=== PATIENT | male | born 1995 | race Caucasian/White ===

== ENCOUNTER 2017-06-14 02:25 | Emergency (ER) | payer MEDICAID, OTHER ==
[~2017-06-14] VITALS: Ht 165.1 cm; Wt 54.4 kg
[2017-06-14 02:30] VITALS: BP 141/77
--- NOTE | 2017-06-14 02:34 | NUR ---
TO LOBBY AMB A/W FOR BED, GWYN NOTED
[2017-06-14] MEDS ORDERED: ALUMINUM HYD/MAG/SIMETHICONE 30 ML UDC PO ONE (03:00)
[2017-06-14] MEDS ORDERED: LIDOCAINE VISCOUS 2% 20 ML UDC PO ONE (03:00)
[2017-06-14] MEDS ORDERED: DICYCLOMINE HCL LIQUID 10 MG/5 ML UDC PO ONE (03:00)
--- NOTE | 2017-06-14 03:00 | NUR ---
22 Y/O M W/C/O EPIGASTRIC PAIN X 2100 LAST NIGHT. PT DENIES ANY VOMITING BUT STATES FEELS SLIGTLY NAUSEATED. NO OTHER S/S OF DISTRESS NOTED. ER MD MADE AWARE.
[2017-06-14 03:49] VITALS: BP 123/84
--- NOTE | 2017-06-14 03:49 | NUR ---
Patient discharged with v/s stable. Written and verbal after care instructions givenand explained. Patient alert, oriented and verbalized understanding of instructions. Ambulatory with steady gait. All questions addressed prior to discharge. ID band removed. Patient advised to follow up with PMD. Rx of OMEPRAZOLE, AND MAALOX given. Patient educated on indication of medication including possible reaction and side effects. Opportunity to ask questions provided and answered.
== END 2017-06-14 03:49 | disposition home or self-care (01) ==
LOC: MED 02:25
DX: K29.70 Gastritis, unspecified, without bleeding (principal); R03.0 Elevated blood-pressure reading, without diagnosis of hypertension
CPT/HCPCS: 99283

== ENCOUNTER 2021-08-16 18:56 | Emergency (ER) | payer MEDICAID, OTHER ==
[~2021-08-16] VITALS: Ht 165.1 cm; Wt 56.7 kg
[2021-08-16 19:15] VITALS: BP 128/84
--- NOTE | 2021-08-16 20:10 | NUR ---
PT AMBULATED TO BED 08.
[2021-08-16] MEDS ORDERED: BENZOCAINE 20% 57 GM CAN MC ONE (21:20)
--- NOTE | 2021-08-16 21:24 | NUR ---
26 YO/M BIB SELF W C/O ABSCESS TO UPPER PALATE X1 WEEK W 10/10 SHARP CONSTANT PAIN RADIATING UP FACE, +SLIGHT NAUSEA FROM THE PAIN. PT REPORTS SEEING DENTIST AND SENT HOME W AMOXICILLIN AND IBUPROFEN BUT SYMPTOMS HAVE NOT RESOLVED. PUS FILLED NODULE APPROX DIME SIZE NOTED TO UPPER PALATE. PT DENIES ANY FEVERS/CHILLS, V/D. PT SITTING IN BED LOCKED IN LOWEST POSITION W X1 SIDERAIL UP. VSS. NAD NOTED, WILL CONTINUE TO MONITOR. PMH: DENIES ALLERGIES: DENIES
--- NOTE | 2021-08-16 21:30 | NUR ---
ERMD AT BEDSIDE FOR PT PROCEDURE.
[2021-08-16] MEDS ORDERED: HYDROcodone/APAP 7.5/325 MG 1 TAB PO ONE (21:40)
[2021-08-16] MEDS ORDERED: AMOX1TAB8 PO (21:49)
[2021-08-16] MEDS ORDERED: IBUP-2213 PO (21:49)
--- NOTE | 2021-08-16 22:04 | NUR ---
PT REPORTS PAIN IMPROVEMENT.
--- NOTE | 2021-08-16 22:14 | NUR ---
PT REPORTS FEELING ALOT BETTER.
[2021-08-16 22:24] VITALS: BP 131/48
--- NOTE | 2021-08-16 22:24 | NUR ---
Patient discharged with v/s stable. Written and verbal after care instructions given and explained. Patient alert, oriented and verbalized understanding of instructions. Ambulatory with steady gait. All questions addressed prior to discharge. ID band removed. Patient advised to follow up with PMD. Rx of AMOXICILLIN/POTASSIUM, IBUPROFEN given. Patient educated on indication of medication including possible reaction and side effects. Opportunity to ask questions provided and answered.
== END 2021-08-16 22:24 | disposition home or self-care (01) ==
LOC: MED 18:56
DX: K12.2 Cellulitis and abscess of mouth (principal); K21.9 Gastro-esophageal reflux disease without esophagitis; I10 Essential (primary) hypertension; Z79.899 Other long term (current) drug therapy
CPT/HCPCS: 99284

== ENCOUNTER 2022-02-19 21:44 | Emergency (ER) | payer OTHER ==
[~2022-02-19] VITALS: Ht 165.1 cm; Wt 59.9 kg
[~2022-02-19 21:44] MED LIST: AMOX1TAB8 PO; IBUP-2213 PO
[2022-02-19 21:51] VITALS: BP 111/65
--- NOTE | 2022-02-19 21:57 | NUR ---
TO LOBBY FOLLOWING TRIAGE
[2022-02-19] MEDS ORDERED: ACETAMINOPHEN EXTRA STRENGTH 500 MG TAB PO ONE (23:20)
[2022-02-19] MEDS ORDERED: IBUPROFEN 600 MG TAB PO ONE (23:20)
[2022-02-19 23:35] LABS: BASOPHILS # (AUTO) 0.1 K/uL (0.00-0.22); BASOPHILS % (AUTO) 0.7 % (0.0-2.0); EOSINOPHILS # (AUTO) 0.1 K/uL (0-0.4); EOSINOPHILS % (AUTO) 1.6 % (0.0-4.0); HEMATOCRIT 42.8 % (36-52); HEMOGLOBIN 14.6 g/dL (12.0-18.0); LYMPHOCYTES # (AUTO) 3.7 K/uL (2.0-11.5); LYMPHOCYTES % (AUTO) 42.7 % (20.5-51.1); MEAN CORPUSCULAR HEMOGLOBIN 31 pg (27-31); MEAN CORPUSCULAR HGB CONC 34 g/dL (33-37); MEAN CORPUSCULAR VOLUME 90.7 fL (80-94); MONOCYTES # (AUTO) 0.7 K/uL (0.8-1.0); MONOCYTES % (AUTO) 7.9 % (1.7-9.3); NEUTROPHILS % (AUTO) 47.1 % (42.2-75.2); PLATELET COUNT (AUTO) 254 K/uL (140-450); RED BLOOD CELL COUNT(AUTO) 4.72 MIL/uL (4.20-6.10); RED CELL DISTRIBUTION WIDTH 13.2 % (11.6-13.7); WHITE BLOOD COUNT (AUTO) 8.6 K/uL (4.8-10.8)
[2022-02-19 23:57] LABS: ALBUMIN 3.9 g/dL (3.4-5.0); ANION GAP 9.9 (8-16); POTASSIUM 3.9 mmol/L (3.5-5.1); TOTAL BILIRUBIN 0.3 mg/dL (0.0-1.0)
[2022-02-20 00:10] VITALS: BP 118/68
--- NOTE | 2022-02-20 00:10 | NUR ---
PT TO BED 4 Addendum: 02/20/22 at 0013 by MARISELJ BED #3
--- NOTE | 2022-02-20 00:10 | NUR ---
received pt w/ CC c/o feeling congested, cold x 1 week w/ chest pain. Lungs ausc. w/ bilat mid lobe dimminished breathe sounds and rhonchi. No norted SOB or disrtress at present.
--- NOTE | 2022-02-20 00:40 | NUR ---
Seen by MD at bedside.
[2022-02-20] MEDS ORDERED: ACETAMINOPHEN EXTRA STRENGTH 500 MG TAB ONE ×2 (01:02→01:12)
[2022-02-20] MEDS ORDERED: IBUPROFEN 600 MG TAB ONE (01:02)
--- NOTE | 2022-02-20 01:14 | NUR ---
PO med Tylenol 500 mg tab fell on the floor from pt. Another tab was pulled and given to complete ordered dose.
--- NOTE | 2022-02-20 01:19 | NUR ---
FLU AND COVID SWABS COLLECTED
[2022-02-20] MEDS ORDERED: CETI-39 PO (01:56)
[2022-02-20] MEDS ORDERED: LOTC TP (01:56)
[2022-02-20] MEDS ORDERED: ALBU6.7H IH (01:56)
--- NOTE | 2022-02-20 02:07 | NUR ---
pain meds effective. Pt verbalized feeling better.
--- NOTE | 2022-02-20 03:05 | NUR ---
Patient discharged with v/s stable. Written and verbal after care instructions given and explained. Patient alert, oriented and verbalized understanding of instructions. Ambulatory with steady gait. All questions addressed prior to discharge. ID band removed. Patient advised to follow up with PMD. Rx for albuterol sulfateand cetirizineHCL, and Lorimin 1% given. Patient educated on indication of medication including possible reaction and side effects. Opportunity to ask questions provided and answered.
== END 2022-02-20 03:05 | disposition home or self-care (01) ==
LOC: MED 21:44
DX: J20.8 Acute bronchitis due to other specified organisms (principal); Z20.822 Contact with and (suspected) exposure to COVID-19; B35.6 Tinea cruris; K21.9 Gastro-esophageal reflux disease without esophagitis
CPT/HCPCS: 36415; 71045; 80053; 85025; 99284